=== PATIENT | male | born 1960 | race Caucasian/White ===

== ENCOUNTER 2017-09-04 17:57 | Emergency (ER) | payer OTHER ==
[2017-09-04] MEDS: TRIMETHOPRIM/SULFAMETHOX (DS) TAB PO (21:43)
[2017-09-04] MEDS: CEPHALEXIN 500 MG CAP PO (21:43)
== END 2017-09-05 00:05 | disposition home or self-care (01) ==
LOC: FTE 09-05 00:05
DX: M79.675 Pain in left toe(s) (principal)
CPT/HCPCS: 73660; 99284-25